=== PATIENT | male | born 1985 | race Caucasian/White ===

== ENCOUNTER 2017-01-04 12:13 | Inpatient (IN) | payer OTHER ==
[2017-01-04 13:39] VITALS: BMI 21.7
--- NOTE | 2017-01-04 18:44 | HP ---
Admission ROS [facility] Chief Complaint: I WANT TO GO TO REHAB Allergies/Adverse Reactions: Allergies Allergy/AdvReac Type Severity Reaction Status Date / Time fish derived Allergy Severe Swelling Verified 01/04/17 18:57 shellfish derived Allergy Severe Swelling Verified 01/04/17 18:57 No Known Drug Allergies Allergy Verified 01/04/17 18:57 Seafood Allergy Severe Swelling Uncoded 01/04/17 17:02 History of Present Illness: 31 YEARS OLD MALE WITH LONG HISTORY OF ALCOHOL COCAINE MARIJUANA NICOTINE DEPENDENCE, DENIES MEDICAL HAS DEPRESSION IS ADMITTED TO REHAB Exam Limitations: No Limitations - Ebola screening Have you traveled outside of the country in the last 21 days: No Have you had contact with anyone from an Ebola affected area: No Have you been sick,other than usual withdrawal symptoms: No Do you have a fever: No - Review of Systems Constitutional: Loss of Appetite, Unintentional Wgt. Loss, Unexplained wgt Loss EENT: reports: No Symptoms Reported, Other (RIGHT EYE BLIND) Respiratory: reports: No Symptoms reported Cardiac: reports: No Symptoms Reported GI: reports: No Symptoms Reported : reports: No Symptoms Reported Musculoskeletal: reports: Back Pain Integumentary: reports: No Symptoms Reported Neuro: reports: No Symptoms reported Endocrine: reports: No Symptoms Reported Hematology: reports: No Symptoms Reported Psychiatric: reports: Judgement Intact, Orientated x3, Depressed Other Systems: Reviewed and Negative Patient History - Patient Medical History Hx Anemia: No Hx Asthma: No Hx Chronic Obstructive Pulmonary Disease (COPD): No Hx Cancer: No Hx Cardiac Disorders: No Hx Congestive Heart Failure: No Hx Hypertension: No Hx Hypercholesterolemia: No Hx Pacemaker: No HX Cerebrovascular Accident: No Hx Seizures: No Hx Dementia: No Hx Diabetes: No Hx Gastrointestinal Disorders: No Hx Liver Disease: No Hx Genitourinary Disorders: No Hx Sexually Transmitted Disorders: No Hx Renal Disease (ESRD): No Hx Thyroid Disease: No Hx Human Immunodeficiency Virus (HIV): No Hx Hepatitis C: No Hx Depression: Yes Hx Suicide Attempt: No Hx Bipolar Disorder: No - Patient Surgical History Past Surgical History: Yes Hx Neurologic Surgery: No Hx Cataract Extraction: Yes (RIGHT EYE BLIND) Hx Cardiac Surgery: No Hx Lung Surgery: No Hx Breast Surgery: No Hx Breast Biopsy: No Hx Abdominal Surgery: No Hx Appendectomy: No Hx Cholecystectomy: No Hx Genitourinary Surgery: No Hx Orthopedic Surgery: No Anesthesia Reaction: No - PPD History Previous Implant?: Yes Documented Results: Negative w/o proof Implanted On Prior [facility] Admission?: No PPD to be Administered?: Yes - Smoking Cessation Smoking history: Current every day smoker Have you smoked in the past 12 months: Yes Aproximately how many cigarettes per day: 20 Cigars Per Day: 0 Hx Chewing Tobacco Use: No Initiated information on smoking cessation: Yes 'Breaking Loose' booklet given: 01/04/17 - Substance & Tx. History Hx Alcohol Use: Yes Hx Substance Use: Yes Substance Use Type: Alcohol, Cocaine, Marijuana Hx Substance Use Treatment: Yes - Substances Abused Alcohol Route: Oral Frequency: 1-2 times per week Amount used: PINT RUM Age of first use: 31 Date of Last Use: 12/30/16 Marijuana/Hashish Route: Smoking Frequency: Daily Amount used: JOINT Age of first use: 19 Date of Last Use: 12/22/16 COCAINE Route: Inhalation Frequency: 1-2 times per week Amount used: 20 G Age of first use: 31 Date of Last Use: 12/30/16 Family Disease History - Family Disease History Family History: Unremarkable Admission Physical Exam S - Vital Signs Vital Signs: Vital Signs - 24 hr 01/04/17 13:36 Temperature 97.3 F L Pulse Rate 92 H Respiratory 20 Rate Blood Pressure 112/72 - Physical General Appearance: Yes: No Apparent Distress, Appropriately Dressed, Thin HEENTM: Yes: Hearing grossly Normal, Normal ENT Inspection, Normocephalic, Normal Voice Respiratory: Yes: Chest Non-Tender, Lungs Clear, Normal Breath Sounds, No Respiratory Distress, No Accessory Muscle Use Neck: Yes: Supple, Trachea in good position Breast: Yes: Breasts Symetrical Cardiology: Yes: Regular Rhythm, S1, S2, Tachycardia Abdominal: Yes: Non Tender, Soft Genitourinary: Yes: Within Normal Limits Back: Yes: Normal Inspection Musculoskeletal: Yes: full range of Motion, Gait Steady, Back pain Extremities: Yes: Normal Inspection, Normal Range of Motion, Non-Tender Neurological: Yes: Fully Oriented, Alert, Motor Strength 5/5, Normal Response, Depressed Affect Integumentary: Yes: Warm Lymphatic: Yes: Within Normal Limits - Diagnostic (1) Alcohol dependence with uncomplicated withdrawal Current Visit: Yes Status: Acute (2) Cocaine dependence, uncomplicated Current Visit: Yes Status: Acute (3) Cannabis dependence, uncomplicated Current Visit: Yes Status: Acute (4) Weight loss Current Visit: Yes Status: Acute (5) 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 (6) Cerebral palsy Current Visit: Yes Status: Chronic Qualifiers: Cerebral palsy type: unspecified type Qualified Code(s): G80.9 - Cerebral palsy, unspecified (7) Depression (emotion) Current Visit: Yes Status: Suspected Qualifiers: Depression Type: dysthymia Qualified Code(s): F34.1 - Dysthymic disorder Cleared for Admission [facility] - Detox or Rehab [facility] Level of Care: Observation Bed Detox Regimen/Protocol: Not Applicable Claeared for Rehab Admission: Yes [facility] Breath Alcohol Content Breath Alcohol Content: 0 Urine Drug Screen - Results Urine Drug Screen Results: TCA-Tricyclic Antidepress
[2017-01-04] MEDS ORDERED: MAGNESIUM CITRATE 300 ML BOTTLE PO PRN (18:52)
[2017-01-04] MEDS ORDERED: ACETAMINOPHEN 325 MG TABLET (FP) PO PRN (18:52)
[2017-01-04] MEDS ORDERED: LOPERAMIDE HCL 2 MG CAPSULE PO PRN (18:52)
[2017-01-04] MEDS ORDERED: IBUPROFEN 400 MG TABLET (FP) PO PRN (18:52)
[2017-01-04] MEDS ORDERED: NICOTINE 21 MG/24 HOURS TOPICAL PATCH TD PRN (18:52)
[2017-01-04] MEDS ORDERED: MAGNESIUM HYDROX 2400MG/30ML ORAL SUSPENSION 30 ML CUP PO PRN (18:52)
[2017-01-04] MEDS ORDERED: MENTHOL/PHENOL 1 EACH UD MM PRN (18:52)
[2017-01-04] MEDS ORDERED: NICOTINE POLACRILEX 2 MG GUM BC PRN (18:52)
[2017-01-04] MEDS ORDERED: P-EPHED 60MG/TRIPROLIDI 2.5MG TABLET PO PRN (18:52)
[2017-01-04] MEDS ORDERED: TUBERCULIN PPD 5 TU/0.1ML VIAL ID ONE (19:37)
[2017-01-04] MEDS: THIAMINE HCL 100 MG TABLET (FP) PO SCH (21:19)
[2017-01-04] MEDS: diphenhydrAMINE HCL 50 MG CAPSULE PO PRN (21:19)
[2017-01-04] MEDS: guaiFENesin/D-METHORPHAN HB 10 ML UNIT-DOSE CUPS PO PRN (21:19)
[2017-01-04 22:20] LABS: URINE APPEARANCE CLEAR; URINE BILIRUBIN NEGATIVE (NEGATIVE); URINE BLOOD NEGATIVE (NEGATIVE); URINE COLOR LTYELLOW; URINE GLUCOSE (UA) NEGATIVE (NEGATIVE); URINE KETONE NEGATIVE (NEGATIVE); URINE LEUK ESTERASE NEGATIVE (NEGATIVE); URINE NITRITE NEGATIVE (NEGATIVE); URINE PROTEIN NEGATIVE (NEGATIVE); URINE UROBILINOGEN NEGATIVE E.U./dl (0.2-1.0)
[2017-01-04] MEDS: traZODone HCL 50 MG TABLET (FP) PO SCH (22:22)
[2017-01-05] MEDS: PRENATAL VITAMINS W/ FOLIC ACID TABLET (FP) PO SCH (09:42)
[2017-01-05] MEDS: hydrOXYzine PAMOATE 50 MG CAPSULE (FP) PO PRN (09:42)
[2017-01-05 10:01] LABS: MCH 27.7 pg (25.7-33.7); MCHC 32.2 g/dl (32.0-35.9); MEAN PLT VOLUME 7.6 fl (7.5-11.1); PLATELET COUNT 275 K/MM3 (134-434); WHITE BLOOD COUNT 6.6 K/mm3 (4.0-10.0)
[2017-01-05 10:27] LABS: ALBUMIN 4.3 g/dl (3.4-5.0); ALK PHOS 63 U/L (45-117); ANION GAP 12 (8-16); BILIRUBIN,TOTAL 0.3 mg/dL (0.2-1.0); CALCIUM 9.1 mg/dL (8.5-10.1); CO2 26 mmol/L (21-32); COCKROFT - GAULT 111.13; CREATININE 0.9 mg/dL (0.7-1.3); GLUCOSE,RANDOM 90 mg/dL (74-106); SGPT/ALT 45 U/L (12-78); TOT PROT 7.8 g/dl (6.4-8.2)
[2017-01-05] MEDS: guaiFENesin/D-METHORPHAN HB 10 ML UNIT-DOSE CUPS PO PRN (10:35)
[2017-01-05 10:36] LABS: SGOT/AST 27 U/L (15-37)
--- NOTE | 2017-01-05 11:08 | HP ---
Psychiatrist Admission - Data Date of interview: 01/05/17 Admission source: [facility] Identifying data: This is the first 5N inpatient rehabilitation admission for this 31 year old single unemployed male residing in [place] [facility] , he currently unemployed. Medical History: Cerebral palsy of right hand and right eye blindness, smokes cigarettes 1/2 ppd. Psychiatric History: Denies history of psychiatric treatment, reports he currently on Trazodone 150 mg po hs, reports his neurologist started for insomnia. Physical/Sexual Abuse/Trauma History: Denies history of sexual, physical and verbal abuse. Additional Comment: Reports worked in [employer] 12 years. Vital Signs: Vital Signs - 24 hr 01/04/17 01/05/17 01/05/17 13:36 00:48 03:30 Temperature 97.3 F L Pulse Rate 92 H Respiratory 20 16 16 Rate Blood Pressure 112/72 01/05/17 06:53 Temperature 97.2 F L Pulse Rate 97 H Respiratory 16 Rate Blood Pressure 122/75 Allergies/Adverse Reactions: Allergies Allergy/AdvReac Type Severity Reaction Status Date / Time fish derived Allergy Severe Swelling Verified 01/04/17 18:57 shellfish derived Allergy Severe Swelling Verified 01/04/17 18:57 No Known Drug Allergies Allergy Verified 01/04/17 18:57 Seafood Allergy Severe Swelling Uncoded 01/04/17 17:02 Date of last physical exam: 01/04/17 Concur with the findings of this exam: Yes - Substance Abuse/Tx History Hx Alcohol Use: Yes (reports was drinking everything beer, vodka, beer) Hx Substance Use: Yes Substance Use Type: Cocaine (binge use), Marijuana (daily use) Hx Substance Use Treatment: No (first rehabilitation tx) - Admission Criteria Previous failed treatment: No Poor recovery environment: Yes Comorbidities: Yes Lacks judgement: Yes Mental Status Exam - Mental Status Exam Alert and Oriented to: Time, Place, Person Cognitive Function: Good Patient Appearance: Well Groomed Mood: Hopeful Affect: Appropriate, Mood Congruent Patient Behavior: Appropriate, Cooperative Speech Pattern: Clear, Appropriate Voice Loudness: Normal Thought Process: Intact, Goal Oriented Thought Disorder: Not Present Hallucinations: Denies Suicidal Ideation: Denies Homicidal Ideation: Denies Insight/Judgement: Fair Sleep: Well (with trazodone) Appetite: Good, Weight loss (25 lbs in one week attributes to binge drinking and binge cocaine use ) Muscle strength/Tone: Normal Gait/Station: Normal Psychiatric Findings - Problem List ([place] 1, 2,3) (1) Cocaine dependence Current Visit: Yes Status: Acute (2) Cannabis dependence Current Visit: Yes Status: Acute (3) Alcohol dependence Current Visit: Yes Status: Acute (4) Alcohol induced sleep disorders Current Visit: Yes Status: Acute - Initial Treatment Plan Initial Treatment Plan: will continue Trazodone, monitor rprogress as needed.
[2017-01-05] MEDS ORDERED: IBUPROFEN 600 MG TABLET (FP) PO PRN (12:26)
--- NOTE | 2017-01-05 12:31 | PN ---
[facility] Progress Note Note: low back pain,used bengay at home,motrin 600 mgs po tid prn,flexeril 10 mgs po tid prn
[2017-01-05] MEDS: METHYL SALICYLATE/MENTHOL OINT 30 GM TUBE TP SCH (13:45)
[2017-01-05] MEDS: THIAMINE HCL 100 MG TABLET (FP) PO SCH (21:08)
[2017-01-05] MEDS: traZODone HCL 50 MG TABLET (FP) PO SCH (21:08)
[2017-01-05] MEDS: CYCLOBENZAPRINE HCL 10 MG TABLET (FP) PO PRN (21:09)
[2017-01-05] MEDS: diphenhydrAMINE HCL 50 MG CAPSULE PO PRN (21:52)
[2017-01-06] MEDS: PRENATAL VITAMINS W/ FOLIC ACID TABLET (FP) PO SCH (09:55)
[2017-01-06] MEDS: METHYL SALICYLATE/MENTHOL OINT 30 GM TUBE TP SCH (09:56)
[2017-01-06] MEDS: CYCLOBENZAPRINE HCL 10 MG TABLET (FP) PO PRN ×2 (09:57→21:15)
--- NOTE | 2017-01-06 16:17 | EKG ---
Test Reason : Blood Pressure : / mmHG Vent. Rate : 092 BPM Atrial Rate : 092 BPM P-R Int : 166 ms QRS Dur : 106 ms QT Int : 342 ms P-R-T Axes : 078 076 070 degrees QTc Int : 422 ms NORMAL SINUS RHYTHM RIGHT ATRIAL ENLARGEMENT BORDERLINE ECG NO PREVIOUS ECGS AVAILABLE Confirmed by MACO STOCK, ADALGISA ([id number]) on 01/06/2017 4:17:13 PM Referred By: Kaleigh Goode Confirmed By:ADALGISA DEWEY MD
[2017-01-06] MEDS: guaiFENesin/D-METHORPHAN HB 10 ML UNIT-DOSE CUPS PO PRN (16:58)
[2017-01-06] MEDS: traZODone HCL 50 MG TABLET (FP) PO SCH (21:14)
[2017-01-06] MEDS: THIAMINE HCL 100 MG TABLET (FP) PO SCH (21:14)
[2017-01-06] MEDS: diphenhydrAMINE HCL 50 MG CAPSULE PO PRN (21:14)
[2017-01-07] MEDS: METHYL SALICYLATE/MENTHOL OINT 30 GM TUBE TP SCH (10:00)
[2017-01-07] MEDS: PRENATAL VITAMINS W/ FOLIC ACID TABLET (FP) PO SCH (10:00)
[2017-01-07] MEDS: CYCLOBENZAPRINE HCL 10 MG TABLET (FP) PO PRN ×2 (10:01→21:06)
[2017-01-07] MEDS: hydrOXYzine PAMOATE 50 MG CAPSULE (FP) PO PRN (18:15)
[2017-01-07] MEDS: traZODone HCL 50 MG TABLET (FP) PO SCH (21:05)
[2017-01-07] MEDS: THIAMINE HCL 100 MG TABLET (FP) PO SCH (21:05)
[2017-01-07] MEDS: diphenhydrAMINE HCL 50 MG CAPSULE PO PRN (21:05)
[2017-01-08] MEDS: PRENATAL VITAMINS W/ FOLIC ACID TABLET (FP) PO SCH (10:21)
[2017-01-08] MEDS: METHYL SALICYLATE/MENTHOL OINT 30 GM TUBE TP SCH (10:21)
[2017-01-08] MEDS: CYCLOBENZAPRINE HCL 10 MG TABLET (FP) PO PRN ×2 (10:22→21:12)
[2017-01-08] MEDS: hydrOXYzine PAMOATE 50 MG CAPSULE (FP) PO PRN (10:23)
[2017-01-08] MEDS ORDERED: LIDOCAINE 5% TOPICAL PATCH TP ONE (14:16)
--- NOTE | 2017-01-08 14:43 | PN ---
Psychiatric Progress Note Vital Signs: Vital Signs Period Temp Pulse Resp BP Sys/Tong Pulse Ox Last 24 Hr 97.4 F 86 16-18 130/83 Date of Session: 01/08/17 Chief Complaint:: "anxious" HPI: Patient is addressing alcohol, cocaine, cannabis dependence comorbid alcohol induced sleep disorder. ROS: Cerebral palsy of right hand and right eye blindness Current Medications: Active Medications Generic Name Dose Route Start Last Admin Trade Name Freq PRN Reason Stop Dose Admin Acetaminophen 650 mg 01/04/17 18:52 01/05/17 09:42 Tylenol - PO 650 mg Q4H PRN Administration PAIN Al Hydroxide/Mg Hydroxide 30 ml 01/04/17 18:52 Mylanta Oral Suspension - PO Q6H PRN DYSPEPSIA Buspirone HCl 5 mg 01/08/17 22:00 Buspar - PO TID MARLON Cyclobenzaprine HCl 10 mg 01/05/17 12:27 01/08/17 10:22 Flexeril - PO 10 mg TID PRN Administration MUSCLE SPASMS Diphenhydramine HCl 50 mg 01/04/17 18:52 01/07/17 21:05 Benadryl - PO 50 mg HSMR1 PRN Administration INSOMNIA Eucalyptus/Menthol/Phenol/Sorbitol 1 each 01/04/17 18:52 Cepastat Lozenge - MM Q4H PRN SORE THROAT Guaifenesin 10 ml 01/04/17 18:52 01/06/17 16:58 Robitussin Dm - PO 10 ml Q6H PRN Administration COUGH Hydroxyzine Pamoate 50 mg 01/04/17 18:52 01/08/17 10:23 Vistaril - PO 50 mg Q4H PRN Administration AGITATION Ibuprofen 600 mg 01/05/17 12:26 Motrin - PO Q6H PRN PAIN Lidocaine 1 patch 01/09/17 10:00 Lidoderm Patch - TP DAILY MARLON Loperamide HCl 4 mg 01/04/17 18:52 Imodium - PO Q6H PRN DIARRHEA Magnesium Citrate 300 ml 01/04/17 18:52 Citroma - PO Q48H PRN CONSTIPATION Magnesium Hydroxide 30 ml 01/04/17 18:52 Milk Of Magnesia - PO DAILY PRN CONSTIPATION Methyl Salicylate 1 applic 01/05/17 12:30 01/08/17 10:21 Donis-Molina - TP Not Given DAILY MARLON Nicotine 21 mg 01/04/17 18:52 Nicoderm Patch - TD DAILY PRN WITHDRAWAL(CONT SUBST) Nicotine Polacrilex 2 mg 01/04/17 18:52 Nicorette Gum - BC Q2H PRN NICOTINE REPLACEMENT RX Multivit/Folic Acid/Iron 1 tab 01/05/17 10:00 01/08/17 10:21 Vitamins (Sjr) - PO 1 tab DAILY MARLON Administration Pseudoephedrine/Triprolidine 1 combo 01/04/17 18:52 Actifed - PO TID PRN NASAL CONGESTION Thiamine HCl 100 mg 01/04/17 22:00 01/07/17 21:05 Vitamin B1 - PO 100 mg HS MARLON Administration Trazodone HCl 150 mg 01/04/17 22:15 01/07/17 21:05 Desyrel - PO 150 mg HS MARLON Administration Medication(s) Change(s): add Buspar 5 mg po tid. Current Side Effect: No Lab tests ordered: No Lab tests reviewed: Yes Provider note:: Patient reports has been feeling very anxious, restless and sometimes having thoughts to leave treatment and go home, reports that vitaril not afftecive, has difficulty to stay in group he is restless, reviewed medicatons with the patient, discusssed indications and properties of Buspar, patient was recommendede to start, will start and contineu to monitor progress. Emotional support and psychoeducations provided. Total face to face time:: 35 Mental Status Exam - Mental Status Exam Alert and Oriented to: Time, Place, Person Cognitive Function: Grossly Intact Patient Appearance: Well Groomed Mood: Anxious, Irritable Affect: Mood Congruent Patient Behavior: Restless, Appropriate Speech Pattern: Clear, Appropriate Voice Loudness: Normal Thought Process: Intact, Goal Oriented Thought Disorder: Not Present Hallucinations: Denies Suicidal Ideation: Denies Homicidal Ideation: Denies Insight/Judgement: Fair Sleep: Fair Appetite: Good Muscle strength/Tone: Normal Gait/Station: Normal Psychiatric Treatment Plan - Problem List (1) Cocaine dependence Current Visit: Yes (2) Cannabis dependence Current Visit: Yes (3) Alcohol dependence Current Visit: Yes (4) Alcohol induced sleep disorders Current Visit: Yes
[2017-01-08] MEDS: traZODone HCL 50 MG TABLET (FP) PO SCH (21:12)
[2017-01-08] MEDS: busPIRone HCL 5 MG TABLET PO SCH (21:12)
[2017-01-08] MEDS: THIAMINE HCL 100 MG TABLET (FP) PO SCH (21:12)
[2017-01-09] MEDS: busPIRone HCL 5 MG TABLET PO SCH ×3 (06:21→21:11)
[2017-01-09] MEDS: METHYL SALICYLATE/MENTHOL OINT 30 GM TUBE TP SCH (10:06)
[2017-01-09] MEDS: PRENATAL VITAMINS W/ FOLIC ACID TABLET (FP) PO SCH (10:06)
[2017-01-09] MEDS: LIDOCAINE 5% TOPICAL PATCH TP SCH (10:07)
[2017-01-09] MEDS: hydrOXYzine PAMOATE 50 MG CAPSULE (FP) PO PRN (12:29)
[2017-01-09] MEDS: THIAMINE HCL 100 MG TABLET (FP) PO SCH (21:11)
[2017-01-09] MEDS: traZODone HCL 50 MG TABLET (FP) PO SCH (21:11)
[2017-01-09] MEDS: diphenhydrAMINE HCL 50 MG CAPSULE PO PRN (21:12)
[2017-01-10] MEDS: busPIRone HCL 5 MG TABLET PO SCH ×3 (06:08→21:26)
[2017-01-10] MEDS: hydrOXYzine PAMOATE 50 MG CAPSULE (FP) PO PRN ×2 (08:56→14:23)
[2017-01-10] MEDS: LIDOCAINE 5% TOPICAL PATCH TP SCH (09:00)
[2017-01-10] MEDS: PRENATAL VITAMINS W/ FOLIC ACID TABLET (FP) PO SCH (09:00)
[2017-01-10] MEDS: METHYL SALICYLATE/MENTHOL OINT 30 GM TUBE TP SCH (09:00)
[2017-01-10] MEDS: traZODone HCL 50 MG TABLET (FP) PO SCH (21:26)
[2017-01-10] MEDS: diphenhydrAMINE HCL 50 MG CAPSULE PO PRN (21:26)
[2017-01-10] MEDS: THIAMINE HCL 100 MG TABLET (FP) PO SCH (21:26)
[2017-01-10] MEDS: CYCLOBENZAPRINE HCL 10 MG TABLET (FP) PO PRN (21:28)
[2017-01-11] MEDS: busPIRone HCL 5 MG TABLET PO SCH ×2 (06:38→13:04)
[2017-01-11] MEDS: hydrOXYzine PAMOATE 50 MG CAPSULE (FP) PO PRN ×2 (06:40→12:35)
[2017-01-11] MEDS: LIDOCAINE 5% TOPICAL PATCH TP SCH (10:21)
[2017-01-11] MEDS: METHYL SALICYLATE/MENTHOL OINT 30 GM TUBE TP SCH (10:21)
[2017-01-11] MEDS: PRENATAL VITAMINS W/ FOLIC ACID TABLET (FP) PO SCH (10:21)
--- NOTE | 2017-01-11 13:30 | PN ---
Psychiatric Progress Note Vital Signs: Vital Signs Period Temp Pulse Resp BP Sys/Tong Pulse Ox Last 24 Hr 97.3 F 92 16-18 148/62 Date of Session: 01/11/17 Chief Complaint:: "he is restless" HPI: Patient is addressing alcohol, cocaine, cannabis dependence comorbid alcohol induced sleep disorder. ROS: Cerebral palsy of right hand and right eye blindness. Current Medications: Active Medications Generic Name Dose Route Start Last Admin Trade Name Freq PRN Reason Stop Dose Admin Acetaminophen 650 mg 01/04/17 18:52 01/05/17 09:42 Tylenol - PO 650 mg Q4H PRN Administration PAIN Al Hydroxide/Mg Hydroxide 30 ml 01/04/17 18:52 Mylanta Oral Suspension - PO Q6H PRN DYSPEPSIA Buspirone HCl 10 mg 01/11/17 13:24 Buspar - PO TID MARLON Cyclobenzaprine HCl 10 mg 01/05/17 12:27 01/10/17 21:28 Flexeril - PO 10 mg TID PRN Administration MUSCLE SPASMS Diphenhydramine HCl 50 mg 01/04/17 18:52 01/10/17 21:26 Benadryl - PO 50 mg HSMR1 PRN Administration INSOMNIA Eucalyptus/Menthol/Phenol/Sorbitol 1 each 01/04/17 18:52 Cepastat Lozenge - MM Q4H PRN SORE THROAT Guaifenesin 10 ml 01/04/17 18:52 01/06/17 16:58 Robitussin Dm - PO 10 ml Q6H PRN Administration COUGH Hydroxyzine Pamoate 50 mg 01/04/17 18:52 01/11/17 12:35 Vistaril - PO 50 mg Q4H PRN Administration AGITATION Ibuprofen 600 mg 01/05/17 12:26 Motrin - PO Q6H PRN PAIN Lidocaine 1 patch 01/09/17 10:00 01/11/17 10:21 Lidoderm Patch - TP Not Given DAILY MARLON Loperamide HCl 4 mg 01/04/17 18:52 Imodium - PO Q6H PRN DIARRHEA Magnesium Citrate 300 ml 01/04/17 18:52 Citroma - PO Q48H PRN CONSTIPATION Magnesium Hydroxide 30 ml 01/04/17 18:52 Milk Of Magnesia - PO DAILY PRN CONSTIPATION Methyl Salicylate 1 applic 01/05/17 12:30 01/11/17 10:21 Donis-Molina - TP Not Given DAILY MARLON Nicotine 21 mg 01/04/17 18:52 Nicoderm Patch - TD DAILY PRN WITHDRAWAL(CONT SUBST) Nicotine Polacrilex 2 mg 01/04/17 18:52 Nicorette Gum - BC Q2H PRN NICOTINE REPLACEMENT RX Multivit/Folic Acid/Iron 1 tab 01/05/17 10:00 01/11/17 10:21 Vitamins (Sjr) - PO 1 tab DAILY MARLON Administration Pseudoephedrine/Triprolidine 1 combo 01/04/17 18:52 Actifed - PO TID PRN NASAL CONGESTION Quetiapine Fumarate 25 mg 01/11/17 13:22 Seroquel - PO 01/11/17 13:23 ONCE ONE Thiamine HCl 100 mg 01/04/17 22:00 01/10/17 21:26 Vitamin B1 - PO 100 mg HS MARLON Administration Trazodone HCl 150 mg 01/04/17 22:15 01/10/17 21:26 Desyrel - PO 150 mg HS MARLON Administration Current Side Effect: No Lab tests ordered: No Lab tests reviewed: Yes Provider note:: Patient reports being restless, "hyper" easily aggravated, anxious, difficulty to control his anger. Reviewed medications with the patient discussed indications and properties of Seroquel, which was recommende as a mood stabilizer, patient agreed tostart. Stress redution techniques discussed, will add Seroquel 25 mg po hs, increase Buspar 10 mg po tid, Seroquel 25 mg po stat, continue to monitor progress. Total face to face time:: 30 Mental Status Exam - Mental Status Exam Alert and Oriented to: Time, Place, Person Cognitive Function: Good Patient Appearance: Well Groomed Mood: Anxious, Irritable Affect: Appropriate, Mood Congruent Patient Behavior: Restless Speech Pattern: Clear, Appropriate Voice Loudness: Normal Thought Process: Intact, Goal Oriented Thought Disorder: Not Present Hallucinations: Denies Suicidal Ideation: Denies Homicidal Ideation: Denies Insight/Judgement: Fair Sleep: Fair Appetite: Fair Muscle strength/Tone: Normal Gait/Station: Normal Psychiatric Treatment Plan - Problem List (1) Cocaine dependence Current Visit: Yes (2) Cannabis dependence Current Visit: Yes (3) Alcohol dependence Current Visit: Yes (4) Alcohol induced sleep disorders Current Visit: Yes
[2017-01-11] MEDS ORDERED: QUEtiapine FUMARATE 25 MG TABLET (FP) PO ONE (13:53)
[2017-01-11] MEDS: busPIRone HCL 10 MG TABLET (FP) PO SCH ×2 (14:02→21:17)
[2017-01-11] MEDS: QUEtiapine FUMARATE 25 MG TABLET (FP) PO SCH (21:16)
[2017-01-11] MEDS: traZODone HCL 50 MG TABLET (FP) PO SCH (21:16)
[2017-01-11] MEDS: THIAMINE HCL 100 MG TABLET (FP) PO SCH (21:17)
[2017-01-11] MEDS: CYCLOBENZAPRINE HCL 10 MG TABLET (FP) PO PRN (21:17)
[2017-01-11] MEDS: diphenhydrAMINE HCL 50 MG CAPSULE PO PRN (22:53)
[2017-01-12] MEDS: busPIRone HCL 10 MG TABLET (FP) PO SCH ×3 (06:59→21:20)
[2017-01-12] MEDS: hydrOXYzine PAMOATE 50 MG CAPSULE (FP) PO PRN ×2 (09:35→14:57)
[2017-01-12] MEDS: METHYL SALICYLATE/MENTHOL OINT 30 GM TUBE TP SCH (09:35)
[2017-01-12] MEDS: PRENATAL VITAMINS W/ FOLIC ACID TABLET (FP) PO SCH (09:35)
[2017-01-12] MEDS: LIDOCAINE 5% TOPICAL PATCH TP SCH (09:36)
[2017-01-12] MEDS: MAG HYDROX/AL HYDROX/SIMETH 30 ML UNIT-DOSE CUP PO PRN (20:08)
[2017-01-12] MEDS: THIAMINE HCL 100 MG TABLET (FP) PO SCH (21:19)
[2017-01-12] MEDS: QUEtiapine FUMARATE 25 MG TABLET (FP) PO SCH (21:19)
[2017-01-12] MEDS: diphenhydrAMINE HCL 50 MG CAPSULE PO PRN (21:20)
[2017-01-12] MEDS: traZODone HCL 50 MG TABLET (FP) PO SCH (21:20)
[2017-01-13] MEDS: busPIRone HCL 10 MG TABLET (FP) PO SCH ×3 (06:35→21:13)
[2017-01-13] MEDS: hydrOXYzine PAMOATE 50 MG CAPSULE (FP) PO PRN ×2 (10:13→15:39)
[2017-01-13] MEDS: LIDOCAINE 5% TOPICAL PATCH TP SCH (10:13)
[2017-01-13] MEDS: PRENATAL VITAMINS W/ FOLIC ACID TABLET (FP) PO SCH (10:13)
[2017-01-13] MEDS: CYCLOBENZAPRINE HCL 10 MG TABLET (FP) PO PRN ×2 (10:14→15:39)
[2017-01-13] MEDS: METHYL SALICYLATE/MENTHOL OINT 30 GM TUBE TP SCH (10:16)
[2017-01-13] MEDS: MAG HYDROX/AL HYDROX/SIMETH 30 ML UNIT-DOSE CUP PO PRN (19:01)
[2017-01-13] MEDS: THIAMINE HCL 100 MG TABLET (FP) PO SCH (21:13)
[2017-01-13] MEDS: traZODone HCL 50 MG TABLET (FP) PO SCH (21:13)
[2017-01-13] MEDS: QUEtiapine FUMARATE 25 MG TABLET (FP) PO SCH (21:13)
[2017-01-13] MEDS: diphenhydrAMINE HCL 50 MG CAPSULE PO PRN (21:13)
[2017-01-14] MEDS: hydrOXYzine PAMOATE 50 MG CAPSULE (FP) PO PRN ×3 (06:43→14:27)
[2017-01-14] MEDS: busPIRone HCL 10 MG TABLET (FP) PO SCH ×3 (06:43→21:06)
[2017-01-14] MEDS: PRENATAL VITAMINS W/ FOLIC ACID TABLET (FP) PO SCH (10:14)
[2017-01-14] MEDS: CYCLOBENZAPRINE HCL 10 MG TABLET (FP) PO PRN ×2 (10:14→14:27)
[2017-01-14] MEDS: LIDOCAINE 5% TOPICAL PATCH TP SCH (10:15)
[2017-01-14] MEDS: METHYL SALICYLATE/MENTHOL OINT 30 GM TUBE TP SCH (10:15)
[2017-01-14] MEDS: diphenhydrAMINE HCL 50 MG CAPSULE PO PRN (21:06)
[2017-01-14] MEDS: THIAMINE HCL 100 MG TABLET (FP) PO SCH (21:06)
[2017-01-14] MEDS: QUEtiapine FUMARATE 25 MG TABLET (FP) PO SCH (21:07)
[2017-01-14] MEDS: traZODone HCL 50 MG TABLET (FP) PO SCH (21:08)
[2017-01-15] MEDS: busPIRone HCL 10 MG TABLET (FP) PO SCH ×3 (06:39→21:03)
[2017-01-15] MEDS: PRENATAL VITAMINS W/ FOLIC ACID TABLET (FP) PO SCH (10:37)
[2017-01-15] MEDS: METHYL SALICYLATE/MENTHOL OINT 30 GM TUBE TP SCH (10:37)
[2017-01-15] MEDS: LIDOCAINE 5% TOPICAL PATCH TP SCH (10:37)
[2017-01-15] MEDS ORDERED: COLLOIDAL OATMEAL 1 BAR EACH TP PRN (12:26)
[2017-01-15] MEDS: hydrOXYzine PAMOATE 50 MG CAPSULE (FP) PO PRN ×2 (13:46→21:05)
[2017-01-15] MEDS: traZODone HCL 50 MG TABLET (FP) PO SCH (21:02)
[2017-01-15] MEDS: diphenhydrAMINE HCL 50 MG CAPSULE PO PRN (21:02)
[2017-01-15] MEDS: QUEtiapine FUMARATE 25 MG TABLET (FP) PO SCH (21:04)
[2017-01-15] MEDS: THIAMINE HCL 100 MG TABLET (FP) PO SCH (21:04)
[2017-01-16] MEDS: busPIRone HCL 10 MG TABLET (FP) PO SCH (06:13)
[2017-01-16] MEDS: METHYL SALICYLATE/MENTHOL OINT 30 GM TUBE TP SCH (09:48)
[2017-01-16] MEDS: LIDOCAINE 5% TOPICAL PATCH TP SCH (09:48)
[2017-01-16] MEDS: PRENATAL VITAMINS W/ FOLIC ACID TABLET (FP) PO SCH (09:48)
--- NOTE | 2017-01-16 13:10 | PN ---
Psychiatric Progress Note Vital Signs: Vital Signs Period Temp Pulse Resp BP Sys/Tong Pulse Ox Last 24 Hr 97.3 F 88 16-18 130/79 Date of Session: 01/16/17 Chief Complaint:: progress update HPI: Patient is addressing alcohol, cocaine, cannabis dependence comorbid alcohol induced sleep disorder. ROS: Cerebral palsy of right hand and right eye blindness. Current Medications: Active Medications Generic Name Dose Route Start Last Admin Trade Name Freq PRN Reason Stop Dose Admin Acetaminophen 650 mg 01/04/17 18:52 01/05/17 09:42 Tylenol - PO 650 mg Q4H PRN Administration PAIN Al Hydroxide/Mg Hydroxide 30 ml 01/04/17 18:52 01/13/17 19:01 Mylanta Oral Suspension - PO 30 ml Q6H PRN Administration DYSPEPSIA Colloidal Oatmeal 1 applic 01/15/17 12:26 01/15/17 18:46 Aveeno Soap - TP 1 applic DAILY PRN Administration HYGEINE Cyclobenzaprine HCl 10 mg 01/05/17 12:27 01/14/17 14:27 Flexeril - PO 10 mg TID PRN Administration MUSCLE SPASMS Diphenhydramine HCl 50 mg 01/04/17 18:52 01/15/17 21:02 Benadryl - PO 50 mg HSMR1 PRN Administration INSOMNIA Eucalyptus/Menthol/Phenol/Sorbitol 1 each 01/04/17 18:52 Cepastat Lozenge - MM Q4H PRN SORE THROAT Guaifenesin 10 ml 01/04/17 18:52 01/06/17 16:58 Robitussin Dm - PO 10 ml Q6H PRN Administration COUGH Hydroxyzine Pamoate 50 mg 01/04/17 18:52 01/15/17 21:05 Vistaril - PO 50 mg Q4H PRN Administration AGITATION Ibuprofen 600 mg 01/05/17 12:26 Motrin - PO Q6H PRN PAIN Lidocaine 1 patch 01/09/17 10:00 01/16/17 09:48 Lidoderm Patch - TP Not Given DAILY MARLON Loperamide HCl 4 mg 01/04/17 18:52 Imodium - PO Q6H PRN DIARRHEA Magnesium Citrate 300 ml 01/04/17 18:52 Citroma - PO Q48H PRN CONSTIPATION Magnesium Hydroxide 30 ml 01/04/17 18:52 Milk Of Magnesia - PO DAILY PRN CONSTIPATION Methyl Salicylate 1 applic 01/05/17 12:30 01/16/17 09:48 Donis-Molina - TP Not Given DAILY MARLON Nicotine 21 mg 01/04/17 18:52 Nicoderm Patch - TD DAILY PRN WITHDRAWAL(CONT SUBST) Nicotine Polacrilex 2 mg 01/04/17 18:52 Nicorette Gum - BC Q2H PRN NICOTINE REPLACEMENT RX Multivit/Folic Acid/Iron 1 tab 01/05/17 10:00 01/16/17 09:48 Vitamins (Sjr) - PO Not Given DAILY MARLON Pseudoephedrine/Triprolidine 1 combo 01/04/17 18:52 Actifed - PO TID PRN NASAL CONGESTION Thiamine HCl 100 mg 01/04/17 22:00 01/15/17 21:04 Vitamin B1 - PO Not Given HS MARLON Trazodone HCl 150 mg 01/04/17 22:15 01/15/17 21:02 Desyrel - PO 150 mg HS MARLON Administration Medication(s) Change(s): d/c Buspar, add Seroquel 25 mg po am and increase Seroquel 50 mg po hs. Current Side Effect: No Lab tests ordered: No Lab tests reviewed: Yes Provider note:: Patient reports he feels restless, mood swings and does not feel that Buspar helpful, it was reported by the staff that patient refusing Buspar, patient reports he has difficulty to fall into the sleep and maintain sleep. Reviwed medications with the patient , psychoeducation and support provided, will d/c Buspar, increase Seroquel, continue to monitor progress. Total face to face time:: 0 Mental Status Exam - Mental Status Exam Alert and Oriented to: Time, Place, Person Cognitive Function: Good Patient Appearance: Well Groomed Mood: Sad, Anxious Affect: Appropriate, Mood Congruent Patient Behavior: Appropriate, Cooperative Speech Pattern: Clear, Appropriate Voice Loudness: Normal Thought Process: Intact, Goal Oriented Thought Disorder: Not Present Hallucinations: Denies Suicidal Ideation: Denies Homicidal Ideation: Denies Insight/Judgement: Fair Sleep: Poorly, Difficulty falling asleep Appetite: Fair Muscle strength/Tone: Normal Gait/Station: Normal Psychiatric Treatment Plan - Problem List (1) Cocaine dependence Current Visit: Yes (2) Cannabis dependence Current Visit: Yes (3) Alcohol dependence Current Visit: Yes (4) Alcohol induced sleep disorders Current Visit: Yes
[2017-01-16] MEDS: traZODone HCL 50 MG TABLET (FP) PO SCH (21:19)
[2017-01-16] MEDS: diphenhydrAMINE HCL 50 MG CAPSULE PO PRN (21:19)
[2017-01-16] MEDS: QUEtiapine FUMARATE 50 MG TABLET PO SCH (21:19)
[2017-01-16] MEDS: THIAMINE HCL 100 MG TABLET (FP) PO SCH (21:19)
[2017-01-17] MEDS: QUEtiapine FUMARATE 25 MG TABLET (FP) PO SCH (10:17)
[2017-01-17] MEDS: LIDOCAINE 5% TOPICAL PATCH TP SCH (10:18)
[2017-01-17] MEDS: METHYL SALICYLATE/MENTHOL OINT 30 GM TUBE TP SCH (10:18)
[2017-01-17] MEDS: PRENATAL VITAMINS W/ FOLIC ACID TABLET (FP) PO SCH (10:18)
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
[2017-01-17] MEDS: THIAMINE HCL 100 MG TABLET (FP) PO SCH (21:24)
[2017-01-17] MEDS: diphenhydrAMINE HCL 50 MG CAPSULE PO PRN (21:24)
[2017-01-17] MEDS: traZODone HCL 50 MG TABLET (FP) PO SCH (21:24)
[2017-01-17] MEDS: QUEtiapine FUMARATE 50 MG TABLET PO SCH (21:25)
[2017-01-18 06:58] VITALS: BP 139/88; PULSE 82; TEMP 97.4
[2017-01-18] MEDS: PRENATAL VITAMINS W/ FOLIC ACID TABLET (FP) PO SCH (10:24)
[2017-01-18] MEDS: METHYL SALICYLATE/MENTHOL OINT 30 GM TUBE TP SCH (10:24)
[2017-01-18] MEDS: QUEtiapine FUMARATE 25 MG TABLET (FP) PO SCH (10:24)
[2017-01-18] MEDS: LIDOCAINE 5% TOPICAL PATCH TP SCH (10:24)
[2017-01-18] MEDS ORDERED: NICOTINE POLACRILEX 2 MG GUM BUC PRN (18:03)
--- NOTE | 2017-01-18 21:34 | PN ---
[facility] Progress Note Note: was called by nurse for discharge order due to the patient's request to leave for personal reason. Scripts transferred to his pharmacy
[2017-01-18] MEDS: THIAMINE HCL 100 MG TABLET (FP) PO SCH (21:45)
[2017-01-18] MEDS: traZODone HCL 50 MG TABLET (FP) PO SCH (21:45)
[2017-01-18] MEDS: QUEtiapine FUMARATE 50 MG TABLET PO SCH (21:45)
== END 2017-01-18 21:35 | disposition home or self-care (01) | DRG 895 ==
LOC: YASAS 12:13 → Y5N 13:53 → UNDODISIN 01-18 14:30
PROVIDERS: ADMIT Psychiatry & Neurology Psychiatry; ATTEND Psychiatry & Neurology Psychiatry
PROC: HZ42ZZZ Group Counseling for Substance Abuse Treatment, Cognitive-Behavioral (ICD-10-PCS; principal; 2017-01-18)
DX: F10.230 Alcohol dependence with withdrawal, uncomplicated (principal); F14.20 Cocaine dependence, uncomplicated; F10.282 Alcohol dependence with alcohol-induced sleep disorder; F12.20 Cannabis dependence, uncomplicated; F34.1 Dysthymic disorder; G50.9 Disorder of trigeminal nerve, unspecified; H54.41 Blindness, right eye, normal vision left eye
CPT/HCPCS: 36415; 80053; 81003; 85027; 86593; 93005; 93010

== ENCOUNTER 2017-01-17 15:19 | Emergency (ER) | payer OTHER ==
[2017-01-17 15:28] VITALS: BP 122/80; PULSE 95; TEMP 98.2; BMI 22.1
--- NOTE | 2017-01-17 17:38 | PDOC ---
History of Present Illness - General Chief Complaint: Eye Problem Stated Complaint: EYE PROBLEM Time Seen by Provider: 01/17/17 15:56 - History of Present Illness Initial Comments: 01/17/17 16:32 Mr. Siddiqi is a 31 y/o male presenting from [facility] complaining of seeing new floaters in his left eye. 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 His symptoms started Sunday afternoon. The floaters "come and go" and he occasionally sees flashing lights. Denies change of vision, pain in the eye, blurred vision, diploplia, loss of vision trauma to the eye. Denies headaches, light headedness, LOC. Past History - Past Medical History Allergies/Adverse Reactions: Allergies Allergy/AdvReac Type Severity Reaction Status Date / Time fish derived Allergy Severe Swelling Verified 01/17/17 15:28 shellfish derived Allergy Severe Swelling Verified 01/17/17 15:28 No Known Drug Allergies Allergy Verified 01/17/17 15:28 Seafood Allergy Severe Swelling Uncoded 01/17/17 15:28 Home Medications: Ambulatory Orders NK [No Known Home Medication] 01/17/17 Anemia: No Asthma: No Cancer: No Cardiac Disorders: No CVA: No COPD: No CHF: No Dementia: No Diabetes: No GI Disorders: No Disorders: No HTN: No Hypercholesterolemia: No Kidney Stones: No Liver Disease: No Suicide Attempt (Hx): No Seizures: No Thyroid Disease: No - Surgical History Abdominal Surgery: No Appendectomy: No Cardiac Surgery: No Cholecystectomy: No Lung Surgery: No Neurologic Surgery: No Orthopedic Surgery: No - Reproductive History Testicular Surgery: No - Psycho/Social/Smoking Cessation Hx Anxiety: No Suicidal Ideation: No Smoking History: Former smoker Have you smoked in the past 12 months: Yes Number of Cigarettes Smoked Daily: 20 Cigars Per Day: 0 Information on smoking cessation initiated: No 'Breaking Loose' booklet given: 01/04/17 Hx Alcohol Use: No Drug/Substance Use Hx: No Substance Use Type: Alcohol, Cocaine, Marijuana Hx Substance Use Treatment: Yes Review of Systems - Review of Systems HEENTM: Yes: See HPI *Physical Exam - Vital Signs Last Vital Signs Temp Pulse Resp BP Pulse Ox 98.2 F 95 H 20 122/80 97 01/17/17 15:25 01/17/17 15:25 01/17/17 15:25 01/17/17 15:25 01/17/17 15:25 - Physical Exam Comments: 01/17/17 16:45 General: NAD, AAOx3, anxious, sitting in chair breathing easily Eyes: OS pupil round reactive to light. Blind in r eye with no pupillary response. No foreign body sensation. EOMI no visual changes, no discharge. Slit lamp exam: cornea intact, no hypmhema, or blood in the anterior chamber. No defects of the cornea, foreign bodies noted Skin: Warm and dry. Normal capillary refill. No rashes. No jaundice. Neurological: Alert, awake, appropriate. Cranial nerves 2-12 intact. No deficits to light touch and temperature in face, upper extremities and lower extremities. No motor deficits in the in face, upper extremities and lower extremities. Normoreflexic in the upper and lower extremities. Normal speech. Toes are down- going bilaterally. Gait is normal without ataxia. Medical Decision Making - Medical Decision Making 01/17/17 17:01 No obvious bleeding, foreign body, or defect of the L eye. Vision intact. Pt. feels less anxious after slit lamp exam. Explained to pt. that floaters can be normal, however will refer to ophthalmology tomorrow for full eye exam. Pt. agrees with discharge plan and understands discharge instructions. Will discharge back to [facility] at this time with an ophthalmology referral. Report given to [facility]. *DC/Admit/Observation/Transfer Diagnosis at time of Disposition: Floaters in visual field Qualifiers: Laterality: left Qualified Code(s): H43.392 - Other vitreous opacities, left eye - Discharge Dispostion Disposition: I.P. ALCOHOL/SUBS ABUSE REHAB Condition at time of disposition: Good Admit: No - Referrals Referrals: Aguilar Marcos [Staff Physician] - - Patient Instructions Printed Discharge Instructions: DI for Eye Floaters Additional Instructions: You have visual floaters. Follow up with ophthalmology tomorrow. There is a referral provided in the discharge summary for Dr. Marcos. Return to the ED if you lose vision, have increased floaters, or see increased flashing lights.
== END 2017-01-17 20:46 | disposition other institution (70) ==
LOC: JERFT 15:19
DX: H43.392 Other vitreous opacities, left eye (principal); H54.41 Blindness, right eye, normal vision left eye
CPT/HCPCS: 99281-25